=== PATIENT | female | born 1955 | race Caucasian/White ===

== ENCOUNTER 2018-03-01 05:54 | Emergency (ER) | payer SELFPAY ==
[~2018-03-01] VITALS: Ht 160 cm; Wt 59.1 kg
[2018-03-01 06:01] VITALS: Ht 160 cm; Wt 59.1 kg
--- NOTE | 2018-03-01 09:14 | ERD ---
ER Documentation Chief Complaint Chief Complaint dizziness and palpitations x1 day. recent dc from [place] for vertigo HPI This is a 62-year-old female with no significant medical history who presents for evaluation of palpitations associated with dizziness. The patient reports that she was seen at [facility], and diagnosed with vertigo, she has been having positional vertiginous dizziness for about the last week. Last night she states that if she moves her head in the vertigo as well as palpitations. She denies chest pain, she has no cardiac history. There are no alleviating or aggravating factors ROS All systems reviewed and are negative except as per history of present illness. Allergies Allergies: Coded Allergies: No Known Allergy (Unverified , 03/01/18) FmHx Family History: No diabetes Physical Exam Vitals Vital Signs Date Temp Pulse Resp B/P (MAP) Pulse Ox O2 O2 Flow FiO2 Time Delivery Rate 03/01/18 98.0 96 20 161/89 98 06:01 (113) Physical Exam Const: No acute distress Head: Atraumatic Eyes: Normal Conjunctiva ENT: Normal External Ears, Nose and Mouth. Neck: Full range of motion. No meningismus. Resp: Clear to auscultation bilaterally Cardio: Regular rate and rhythm, no murmurs Abd: Soft, non tender, non distended. Normal bowel sounds Skin: No petechiae or rashes Back: No midline or flank tenderness Ext: No cyanosis, or edema Neur: Alert and oriented x4, no cerebellar ataxia, cranial nerves II through XII intact Psych: Normal Mood and Affect Result Diagram: 03/01/18 0930 03/01/18 0930 Results 24 hrs Laboratory Tests Test 03/01/18 09:30 White Blood Count 7.3 10^3/ul Red Blood Count 4.78 10^6/ul Hemoglobin 14.1 g/dl Hematocrit 43.3 % Mean Corpuscular Volume 90.6 fl Mean Corpuscular Hemoglobin 29.5 pg Mean Corpuscular Hemoglobin Concent 32.6 g/dl Red Cell Distribution Width 13.2 % Platelet Count 263 10^3/UL Mean Platelet Volume 9.3 fl Immature Granulocytes % 0.100 % Neutrophils % 71.0 % Lymphocytes % 23.8 % Monocytes % 4.1 % Eosinophils % 0.7 % Basophils % 0.3 % Nucleated Red Blood Cells % 0.0 /100WBC Immature Granulocytes # 0.010 10^3/ul Neutrophils # 5.2 10^3/ul Lymphocytes # 1.8 10^3/ul Monocytes # 0.3 10^3/ul Eosinophils # 0.1 10^3/ul Basophils # 0.0 10^3/ul Nucleated Red Blood Cells # 0.0 10^3/ul Prothrombin Time 12.6 Sec Prothrombin Time Ratio 1.0 INR International Normalized Ratio 0.93 Sodium Level 139 mmol/L Potassium Level 4.4 mmol/L Chloride Level 102 mmol/L Carbon Dioxide Level 27 mmol/L Anion Gap 10 Blood Urea Nitrogen 14 mg/dl Creatinine 0.58 mg/dl Est Glomerular Filtrat Rate mL/min > 60 mL/min Glucose Level 124 mg/dl Calcium Level 10.2 mg/dl Total Bilirubin 0.1 mg/dl Direct Bilirubin 0.00 mg/dl Indirect Bilirubin 0.1 mg/dl Aspartate Amino Transf (AST/SGOT) 26 IU/L Alanine Aminotransferase (ALT/SGPT) 20 IU/L Alkaline Phosphatase 144 IU/L Troponin I < 0.012 ng/ml Total Protein 8.4 g/dl Albumin 4.4 g/dl Globulin 4.00 g/dl Albumin/Globulin Ratio 1.10 Procedures/MDM This is a 62-year-old female presents for evaluation of dizziness. Exam reveals a well-appearing nontoxic female in no acute distress, she has no neurologic symptoms concerning for central cause of her dizziness. She had no cardiac history, but given age ACS workup was ordered, at this point she is stable for discharge home. At discharge she was in no acute distress. Strict return preca utions were given for any worsening symptoms, chest pain, any neurologic changes, or any other concerns. CBC: no e/o of systemic infection or severe anemia CMP: no e/o severe acidosis, renal failure, diabetic ketoacidosis, liver disease Lipase: no e/o pancreatitis PT/INR: normal coagulation Troponin: no e/o acute ischemia Chest X-ray 1V Interpreted by me: Soft Tissue: No acute abnormalities Bones: No acute abnormalities Mediastinum/Cardiac Silhouette/Lungs: No acute abnormalities Rate/Rhythm: Normal Sinus Rhythm QRS, ST, T-waves: Right bundle branch block. No changes consistent w/ acute ischemia Impression: No evidence of ischemia or arrhythmia Departure Diagnosis: Primary Impression: Palpitations Additional Impression: Vertigo Condition: Stable MARIE DOBBS MD Mar 01, 2018 09:14
[2018-03-01 11:30] VITALS: BP 124/54; PULSE 86; RESP 20
== END 2018-03-01 11:44 | disposition home or self-care (01) ==
LOC: E/R 05:54
DX: R00.2 Palpitations (principal); R07.9 Chest pain, unspecified
CPT/HCPCS: 71045; 80053; 84484; 85025; 85610; 93005